=== PATIENT | female | born 1985 | race Two or more races ===

== ENCOUNTER → 2025-04-02 | Outpatient (CLI) | payer MEDICAID, SELFPAY ==
--- NOTE | 2025-04-02 09:30 | XR_ITS ---
Examination: Breast ultrasound complete, bilateral Date and time of exam: April 02, 2025 0935 hours INDICATIONS: Bilateral nipple discharge and pain 2 months Technique: Real-time grayscale ultrasonographic imaging bilateral breasts, including all 4 quadrants as well as nipple retroareolar and axillary regions. Findings: Sonographic images right breast 12:00 nodule circumscribed 9 x 9 mm 12:00 nodule circumscribed 5 x 5 mm Sonographic images left breast No cystic or solid mass IMPRESSION: BI-RADS Category 3: Probably benign findings One additional 6 month right breast sonogram follow-up is needed to document stability of solid nodules described above.
--- NOTE | 2025-04-02 10:30 | XR_ITS ---
Examination: Diagnostic digital mammography, bilateral Computer aided detection 3-D breast Tomosynthesis, bilateral Date and time of exam: April 02, 2025 0956 hours INDICATIONS: Outside mammogram January 05, 2025 focal asymmetry 11 mm right breast 12:00 position Technique: Nonmagnified MLO, CC views of the breasts to been obtained, reconstructed from 3-D Tomosynthesis images. R2 computer aided detection program utilized for evaluation of suspicious masses and/or abnormal calcifications. 3-D Tomosynthesis images obtained. Findings: The breasts are heterogeneously dense, which may obscure small masses 12:00 nodule 8 mm Impression: BI-RADS Category 3: Probably benign findings One additional 6 month right mammogram follow-up is needed.
== END | disposition home or self-care (01) ==
DX: R92.333 Mammographic heterogeneous density, bilateral breasts (principal); N63.15 Unspecified lump in the right breast, overlapping quadrants
CPT/HCPCS: 76641; 77062; 77066; G0279